=== PATIENT | female | born 1965 | race Caucasian/White ===

== ENCOUNTER 2016-09-26 04:54 | Emergency (ER) | payer OTHER ==
[2016-09-26 05:12] VITALS: BP 179/93; PULSE 100; TEMP 97.8
[2016-09-26] MEDS ORDERED: LISINOPRIL 5 MG TABLET (FP) PO ONE (05:24)
[2016-09-26] MEDS ORDERED: ACETAMINOPHEN 325 MG TABLET (FP) PO ONE (05:24)
--- NOTE | 2016-09-26 05:32 | PDOC ---
History of Present Illness - General Chief Complaint: Blood Pressure Problem Stated Complaint: HEADACHE/BP PROBLEM Time Seen by Provider: 09/26/16 05:05 - History of Present Illness Initial Comments: 09/26/16 05:26 Patient is a 51 year old female with a history of HTN, Hypothyroidism who presents with headache and high blood pressure. The patient reports waking up with a 5/10 right sided headache that she describes as a pressure. She measured her blood pressure and it was elevated to 176/80 prompting her to present to the ED. She notes that she did not take her bp medication yesterday because her bp was lower than normal. She states that she has had headaches similar to this in the past which she associated with elevated bp. She denies fevers, chills, photophobia, phonophobia, vision changes, chest pain, SOB, abdominal pain, or changes with bowel movements or urination. Past History - Past Medical History Allergies/Adverse Reactions: Allergies Allergy/AdvReac Type Severity Reaction Status Date / Time shellfish derived Allergy Severe Rash Verified 09/26/16 05:08 Home Medications: Ambulatory Orders Atorvastatin Ca [Lipitor] 40 mg PO HS 09/26/16 Levothyroxine [Synthroid -] 25 mcg PO DAILY 09/26/16 Lisinopril [Zestril] 2.5 mg PO DAILY 09/26/16 Thyroid Disease: Yes (Hypo) - Psycho/Social/Smoking Cessation Hx Suicidal Ideation: No Smoking History: Never smoked Information on smoking cessation initiated: No Hx Alcohol Use: No Drug/Substance Use Hx: No Substance Use Type: None Review of Systems - Review of Systems Constitutional: No: Chills, Fever HEENTM: No: Blurred Vision, Recent change in vision, Double Vision Respiratory: No: Cough, Shortness of Breath Cardiac (ROS): No: Chest Pain, Lightheadedness, Palpitations ABD/GI: No: Constipated, Diarrhea, Nausea, Vomiting : No: Burning, Dysuria Integumentary: No: Rash Neurological: Yes: Headache. No: Numbness, Paresthesia, Tingling, Weakness *Physical Exam - Vital Signs Last Vital Signs Temp Pulse Resp BP Pulse Ox 97.8 F 100 H 20 179/93 99 09/26/16 05:08 09/26/16 05:08 09/26/16 05:08 09/26/16 05:08 09/26/16 05:08 - Physical Exam Comments: 09/26/16 05:33 General Appearance: Nourished. No Apparent Distress HEENT: EOMI, GUNJAN. No Photophobia, Pharyngeal Erythema, Tonsillar Exudate, Tonsillar Erythema or papilladema Respiratory/Chest: Lungs Clear, Normal Breath Sounds. No Crackles, Rales, Rhonchi, Wheezing Cardiovascular: Regular Rhythm, Regular Rate. No Murmur, Gallop/S3, Gallop/S4 Gastrointestinal/Abdominal: Normal Bowel Sounds, Soft. No Guarding, Rebound, Tenderness Extremity: Normal Capillary Refill Integumentary: Normal Color, Dry, Warm Neurologic: pet handler II-XII NML intact, Fully Oriented, Alert, Normal Mood/Affect, Normal Response, Motor Strength 5/5 Medical Decision Making - Medical Decision Making 09/26/16 05:35 Patient is a 51 year old female with a history of HTN who presents with headache and elevated blood pressure. Given her history and physical exam, it is likely her current headache is due to her elevated blood pressure and her elevated blood pressure is due to her not taking her medication. We are less concerned for subarachnoid bleed at this time. We will give her home dose of lisinopril, tylenol and reassess. 09/26/16 06:37 Patient's symptoms are improved. Repeat bp 154/90. We feel comfortable discharging the patient home at this time and the patient is agreeable with the plan. *DC/Admit/Observation/Transfer Diagnosis at time of Disposition: HTN (hypertension) Qualifiers: Hypertension type: unspecified Qualified Code(s): I10 - Essential (primary) hypertension Headache Qualifiers: Headache type: unspecified Headache chronicity pattern: acute headache Intractability: not intractable Qualified Code(s): R51 - Headache - Discharge Dispostion Disposition: HOME Condition at time of disposition: Improved Admit: No - Referrals Referrals: Jeff Turner [Primary Care Provider] - - Patient Instructions Printed Discharge Instructions: DI for High Blood Pressure, DI for Headache Additional Instructions: Please return to the ER if you experience any new, concerning or worsening symptoms. Please follow up with your primary care provider to discuss your ER visit. Please remember to take your blood pressure medication every day as prescribed by your doctor. - Attestations Physician Attestion: 09/26/16 06:40 I, Dr. Kali Nina, attest that this document has been prepared under my direction and personally reviewed by me in its entirety. I further attest, that it accurately reflects all work, treatment, procedures and medical decision -making performed by me.
[2016-09-26] MEDS ORDERED: ACETAMINOPHEN 325 MG TABLET (FP) ONE (05:39)
[2016-09-26] MEDS ORDERED: LISINOPRIL 5 MG TABLET (FP) ONE (05:40)
--- NOTE | 2016-09-26 05:45 | PDOC ---
Attending Attestation - Resident Resident Name: Kali Nina - ED Attending Attestation I have performed the following: I have examined & evaluated the patient, The case was reviewed & discussed with the resident, I agree w/resident's findings & plan, Exceptions are as noted - HPI HPI: 09/26/16 05:30 51 F with h/o HTN, HLD, hypothyroid presents to ER with headache and HTN. Pt states that she awoke this morning with a 5/10 R sided headache. She denies thunderclap. Denies N/V. Denies neck stiffness. Pt states that she gets these same headaches every 3 months or so, usually in the context of her BP being elevated. Pt denies any difference in today's headache. Pt notes that her BP upon awakening was 170s/90s. She admits to skipping her lisinopril dose yesterday due to her BP being low. Pt denies CP/SOB. Denies leg swelling. Denies weakness/numbness in any extremity. Denies dizziness. - Physicial Exam PE: 09/26/16 05:47 "GENERAL: Awake, alert, and fully oriented, in no acute distress HEAD: No signs of trauma EYES: PERRLA, EOMI, no nystagmus sclera anicteric, conjunctiva clear ENT: Auricles normal inspection, hearing grossly normal, nares patent, oropharynx clear without exudates. Moist mucosa NECK: Normal ROM, no TTP, supple, no lymphadenopathy, JVD, or masses LUNGS: Breath sounds equal, clear to auscultation bilaterally. No wheezes, and no crackles HEART: Regular rate and rhythm, normal S1 and S2, no murmurs, rubs or gallops ABDOMEN: Soft, nontender, normoactive bowel sounds. No guarding, no rebound. No masses NEUROLOGICAL: Cranial nerves II through XII intact. 5/5 strength and sensation in all extremities. Normal speech, normal gait SKIN: Warm, Dry, normal turgor, no rashes or lesions noted. " - Medical Decision Making 09/26/16 05:48 51 F with headache and HTN in context of missing her dose of lisinopril yesterday. Pt with no signs suggestive of SAH. DOSS is similar to previous headaches, only 5/10 in severity. Pt with no neuro deficits. - Lisinopril 2.5mg - Tylenol - Reassess 09/26/16 06:40 Pt reassessed s/p meds. BP no 154/95. Pt states that her headache has resolved completely. Neuro exam unchanged. Stable for DC.
== END 2016-09-26 07:14 | disposition home or self-care (01) ==
LOC: JER 04:54
DX: R51 Headache (principal); I10 Essential (primary) hypertension; E03.9 Hypothyroidism, unspecified
CPT/HCPCS: 99281-25

== ENCOUNTER 2023-03-26 11:37 | Emergency (ER) | payer OTHER ==
[2023-03-26 11:54] VITALS: RESP 18; BMI 32.5
[2023-03-26 13:37] LABS: BASO % 0.4 % (0-2.0); EOS % 0.8 % (0-4.5); HEMATOCRIT 35.3 % (32.4-45.2); HEMOGLOBIN 11.9 GM/dL (10.7-15.3); MCHC 33.7 g/dl (32.0-36.0); MEAN CELL VOLUME 92.1 fl (80-96); MEAN PLT VOLUME 7.5 fl (7.5-11.1); MONO % 6.9 % (3.8-10.2); NEUT % 69.9 % (42.8-82.8); PLATELET COUNT 341 10^3/uL (134-434); RBC 3.84 M/mm3 (3.60-5.2); RDW 13.8 % (11.6-15.6); WHITE BLOOD COUNT 8.7 K/mm3 (4.0-10.0)
[2023-03-26 13:51] LABS: INR 1.02 (0.83-1.09); PROTHROMBIN TIME (PATIENT) 11.8 SEC (9.7-13.0)
[2023-03-26 13:59] LABS: POTASSIUM 4.2 mmol/L (3.5-5.1)
[2023-03-26 14:02] LABS: CALCIUM 9.8 mg/dL (8.5-10.1)
[2023-03-26 14:04] LABS: ALBUMIN 3.7 g/dl (3.4-5.0); BLOOD UREA NITROGEN 14.9 mg/dL (7-18)
[2023-03-26 14:07] LABS: CREATININE 0.8 mg/dL (0.55-1.3)
[2023-03-26 14:08] LABS: BILIRUBIN,TOTAL 0.2 mg/dL (0.2-1); TOT PROT 7.1 g/dl (6.4-8.2)
[2023-03-26 15:42] VITALS: BP 157/96; PULSE 94; TEMP 98.3
[2023-03-26] MEDS ORDERED: AMOX TR/POT CLAV 875MG/125MG TABLETS (FP) ONE (17:29)
[2023-03-26] MEDS ORDERED: IBUPROFEN 600 MG TABLET (FP) PO ONE (17:29)
[2023-03-26] MEDS ORDERED: ACETAMINOPHEN 500 MG TABLET (FP) ONE (17:29)
[2023-03-26] MEDS: AMOX TR/POT CLAV 875MG/125MG TABLETS (FP) PO ONE (17:33)
[2023-03-26] MEDS: IBUPROFEN 600 MG TABLET (FP) PO ONE (17:33)
[2023-03-26] MEDS: ACETAMINOPHEN 500 MG TABLET (FP) PO ONE (17:34)
== END 2023-03-26 17:35 | disposition home or self-care (01) ==
LOC: JER 11:37
DX: I88.9 Nonspecific lymphadenitis, unspecified (principal); R22.1 Localized swelling, mass and lump, neck; R59.1 Generalized enlarged lymph nodes
CPT/HCPCS: 0241U-QW; 36415; 70491-TC; 80053; 85025; 85610; 86850; 86900; 86901; 99285-25; Q9967

== ENCOUNTER 2023-11-18 09:41 | Emergency (ER) | payer OTHER ==
[2023-11-18 10:04] VITALS: BP 161/83; PULSE 104; RESP 18; TEMP 98.8; BMI 33.2
[2023-11-18] MEDS ORDERED: LIDOCAINE 4% PATCH TP ONE (11:28)
[2023-11-18] MEDS ORDERED: ACETAMINOPHEN 500 MG TABLET (FP) ONE (11:28)
[2023-11-18] MEDS ORDERED: KETOROLAC TROMETHAMINE 30 MG/1 ML VIAL ONE (11:28)
[2023-11-18] MEDS: ACETAMINOPHEN 500 MG TABLET (FP) PO ONE (11:35)
[2023-11-18] MEDS: KETOROLAC TROMETHAMINE 30 MG/1 ML VIAL IM ONE (11:36)
[2023-11-18] MEDS: LIDOCAINE 4% PATCH TP ONE (11:36)
[2023-11-18] MEDS ORDERED: LIDOCAINE PATCH REMOVAL MC SCH (22:00)
== END 2023-11-18 13:18 | disposition home or self-care (01) ==
LOC: JER 09:41
PROC: 3E0233Z Introduction of Anti-inflammatory into Muscle, Percutaneous Approach (ICD-10-PCS; principal; 2023-11-18)
DX: M54.2 Cervicalgia (principal); M62.838 Other muscle spasm
CPT/HCPCS: 72050-TC-FY; 99284-25